=== PATIENT | female | born 1985 | race Caucasian/White ===

== ENCOUNTER 2017-09-24 13:51 | Emergency (ER) | payer OTHER, MEDICAID ==
[~2017-09-24] VITALS: Ht 160 cm; Wt 54.4 kg
[2017-09-24 16:55] VITALS: BP 118/76
== END 2017-09-24 17:04 | disposition home or self-care (01) ==
LOC: ER 13:51
DX: H66.91 Otitis media, unspecified, right ear (principal); Z88.6 Allergy status to analgesic agent; Z88.8 Allergy status to other drugs, medicaments and biological substances

== ENCOUNTER 2018-08-30 09:03 | Inpatient (IN) | payer OTHER ==
[~2018-08-30] VITALS: Ht 160 cm; Wt 58.5 kg
[2018-08-30 10:22] LABS: Urine WBC None Seen /hpf (0 - 5)
[2018-08-30 10:26] LABS: Basophils # (auto) 0 uL; Basophils % (auto) 0.5 % (0.0-2.0); Eosinophils # (auto) 0 uL; Eosinophils % (auto) 0.5 % (0.0-7.0); Hematocrit 41.8 % (36.0-46.0); Hemoglobin 14.4 g/dL (12.2-16.2); Lymphocytes # (auto) 3.1 uL; Lymphocytes % (auto) 52.2 % (10.0-50.0); Mean Corpuscular Hemoglobin 31.5 pg (28.0-32.0); Mean Corpuscular Hgb Conc. 34.4 g/dL (32.0-36.0); Mean Corpuscular Volume 91.7 fL (80.0-100.0); Monocytes # (auto) 0.7 uL; Neutrophils # (auto) 2.1 uL; Neutrophils % (auto) 35.8 % (37.0-80.0); Nucleated Red Blood Cells % 0.2 %; Platelet Count (auto) 141 10^3/uL (140-450); Red Blood Cells 4.56 10^6/uL (4.0-5.20); Red Cell Distribution Width 12.6 % (11.8-14.3); White Blood Cell 5.9 10^3/uL (4.4-10.8)
[2018-08-30 10:42] LABS: Albumin 3.7 g/dL (3.4-5.0); Calcium 8.9 mg/dL (8.5-10.1); Potassium 3.9 mmol/L (3.5-5.1)
[2018-08-30 10:46] LABS: BUN/Creatinine Ratio 4.8; Bilirubin, Total 0.5 mg/dL (0.2-1.0); Total Protein 7.5 g/dL (6.4-8.2)
[2018-08-30 11:05] LABS: Urine Bacteria FEW /hpf (None Seen); Urine Blood Negative /uL (Negative); Urine Specific Gravity 1.005 (1.001-1.035)
[2018-08-30] MEDS ORDERED: SODIUM CHLORIDE 0.9% 1,000 ML IV ONE ×2 (11:57)
[2018-08-30] MEDS ORDERED: PIPERACILLIN-TAZOB 3.375GM 100 ML IV ONE (12:00)
[2018-08-30] MEDS ORDERED: metroNIDAZOLE 500MG/100ML 100 ML IV ONE (12:00)
[2018-08-30] MEDS ORDERED: metroNIDAZOLE 500MG/100ML 100 ML IV SCH (14:00)
[2018-08-30] MEDS: SODIUM CHLORIDE 0.9% 1,000 ML IV SCH (14:00)
[2018-08-30] MEDS ORDERED: LEVOFLOXACIN 500MG 100 ML IV SCH ×2 (14:00→14:18)
[2018-08-30 14:41] LABS: Alcohol, Urine < 3.0 mg/dL (0-5); Amphetamine Screen, Urine NEGATIVE (NEGATIVE); Barbiturate Scree,Urine NEGATIVE (NEGATIVE); Benzodiazephine Screen, Urine NEGATIVE (NEGATIVE); Cannabinoid Screen, Urine NEGATIVE (NEGATIVE); Cocaine Screen, Urine NEGATIVE (NEGATIVE); Opiate Scree,Urine NEGATIVE (NEGATIVE); Phencyclidine Screen, Urine NEGATIVE (NEGATIVE)
--- NOTE | 2018-08-30 16:40 | NUR ---
Med/Surg admit from ER [facility] admitted to medical/surgical unit after SBAR received. Patient oriented to primary RN, unit, room, bed, and unit policies regarding patient care and visiting hours. Patient weighed by bedscale and encouraged to call if they need something. All questions and concerns addressed, patient verbalized understanding.
[2018-08-30 16:47] VITALS: BP 106/75
[2018-08-30 17:02] VITALS: BP 106/75
[2018-08-30] MEDS: traMADol HCL 50 MG TAB PO PRN (17:31)
[2018-08-30] MEDS: LEVOFLOXACIN 500MG 100 ML IV SCH (18:11)
--- NOTE | 2018-08-30 19:00 | NUR ---
Opening Shift Note Assumed care of patient, awake and alert. No S/S of distress/SOB or pain. Instructed on POC and to call for assist PRN, will continue to monitor for changes Q1hr and PRN.
[2018-08-30] MEDS ORDERED: IBUP200C3 PO (19:54)
[2018-08-30 20:00] VITALS: BP 116/76
[2018-08-30 22:00] VITALS: BP 116/76
--- NOTE | 2018-08-30 22:00 | NUR ---
C/O Headache Paged hospitalist
[2018-08-30] MEDS: metroNIDAZOLE 500MG/100ML 100 ML IV SCH (22:09)
--- NOTE | 2018-08-30 22:25 | NUR ---
Received order for Ibuprofen 600 once.
[2018-08-30] MEDS ORDERED: IBUPROFEN 600 MG TAB PO ONE (22:30)
[2018-08-31 05:00] VITALS: BP 99/67
[2018-08-31] MEDS: traMADol HCL 50 MG TAB PO PRN ×2 (05:21→13:38)
[2018-08-31] MEDS: metroNIDAZOLE 500MG/100ML 100 ML IV SCH ×3 (06:19→21:31)
[2018-08-31 07:24] LABS: Potassium 4.1 mmol/L (3.5-5.1)
--- NOTE | 2018-08-31 07:25 | NUR ---
Opening Shift Note Assumed care of patient, awake and alert sitting up in bed. No S/S of distress/SOB or pain. Instructed on POC and to call for assist PRN, will continue to monitor for changes Q1hr and PRN.
[2018-08-31 07:26] LABS: BUN/Creatinine Ratio 7.6; Calcium 8.5 mg/dL (8.5-10.1)
[2018-08-31 07:32] LABS: INR 0.97 (0.9-1.15); Partial Thromboplastin Time 28.1 sec (23.78-33.04); Prothrombin Time 10.4 sec (9.27-12.13)
[2018-08-31 07:54] VITALS: BP 105/70
[2018-08-31] MEDS: MORPHINE SULF INJ 2 MG/ML SYRINGE 1ML IV PRN ×2 (10:54→16:08)
[2018-08-31] MEDS: SODIUM CHLORIDE 0.9% 1,000 ML IV SCH ×3 (10:57→21:49)
[2018-08-31 12:05] VITALS: BP 100/65
[2018-08-31] MEDS ORDERED: GOLYTELY 4L KIT PO ONE (13:15)
--- NOTE | 2018-08-31 14:15 | NUR ---
Headache Hospitalist paged, patient complained of having severe headache which is not relieved by tramadol 50mg. Hospitalist paged.
--- NOTE | 2018-08-31 14:27 | NUR ---
Telephone order received from Dr. Sifuentes for Ibuprofen 600mg once.
[2018-08-31] MEDS ORDERED: IBUPROFEN 600 MG TAB PO ONE (14:30)
--- NOTE | 2018-08-31 14:40 | NUR ---
Jeny Patient asleep at this time. Did not wake her for pain medication.
--- NOTE | 2018-08-31 15:00 | NUR ---
Visitor at bedside.
--- NOTE | 2018-08-31 16:00 | NUR ---
Jeny Brought oral pain medication for patient. However, she refused, wanted morphine instead. Medication wasted.
[2018-08-31 16:57] VITALS: BP 112/70
[2018-08-31] MEDS: LEVOFLOXACIN 500MG 100 ML IV SCH (18:06)
--- NOTE | 2018-08-31 19:00 | NUR ---
OPENING NOTE Received report from day shift RN. Patient is A&O X's 4 with no s/s of distress noted. Patient reports headache and nausea. She reported that she vomited once time. No nausea medication ordered. Will page hospitalist. Patient's family member is at bedside. Educated patient and family member on pain medication/antiemetic medication/POC. Educated patient that she will be NPO after midnight and that she will need to drink and finish the Golytely. Patient verbalized understanding. Bed is in lowest/locked position with side rails up X's 2. Call light is within reach of patient. Will continue to monitor and round hourly/PRN.
[2018-08-31] MEDS: ONDANSETRON HCL 4 MG/2 ML VIAL IV PRN (21:31)
[2018-08-31 21:56] VITALS: BP 105/57
[2018-09-01 05:39] VITALS: BP 104/71
[2018-09-01] MEDS: metroNIDAZOLE 500MG/100ML 100 ML IV SCH ×3 (05:40→21:31)
[2018-09-01] MEDS: SODIUM CHLORIDE 0.9% 1,000 ML IV SCH ×2 (05:41→16:00)
--- NOTE | 2018-09-01 05:59 | NUR ---
GOLYTELY Educated patient to consume the rest of golytely solution. Patient verbalized understanding. Will continue to educate patient and encourage patient to finish solution.
[2018-09-01] MEDS ORDERED: GOLYTELY 4L KIT PO ONE (06:00)
--- NOTE | 2018-09-01 07:30 | NUR ---
Opening Note Received report from night custodian RN. Patient is awake, alert and oriented x4. No signs or symptoms of distress noted at this time. Patient states a headache 10/. Will medicate per orders. Patient is on room air, denies shortness of breath at this time. Reviewed plan of care with patient, patient verbalized understanding. Patient instructed to finish drinking Golytely for procedure today. Bed in lowest and locked position, call light within reach. Will continue to monitor Q1 hour and PRN.
[2018-09-01 08:46] VITALS: BP 105/62
[2018-09-01] MEDS: traMADol HCL 50 MG TAB PO PRN ×2 (09:10→19:03)
--- NOTE | 2018-09-01 09:30 | NUR ---
Visitor at bedside
[2018-09-01] MEDS: ONDANSETRON HCL 4 MG/2 ML VIAL IV PRN (10:44)
[2018-09-01] MEDS ORDERED: FLUMAZENIL 0.1 MG/ML INJ 10ML MDV IV ONE (11:18)
[2018-09-01] MEDS ORDERED: NALOXONE HCL 0.4 MG/ML VIAL ONE (11:18)
[2018-09-01] MEDS ORDERED: SODIUM CHLORIDE LOCK 10 ML ONE (11:18)
[2018-09-01] MEDS ORDERED: diphenhdrAMINE HCL 50 MG/1 ML VL ONE (11:19)
--- NOTE | 2018-09-01 11:28 | NUR ---
Patient taken down to OR
[2018-09-01] MEDS: MIDAZOLAM HCL 5 MG/ML-1ML VIAL ONE ×3 (11:43→11:53)
[2018-09-01] MEDS: fentaNYL CITRATE 100 MCG/2 ML VL ONE ×3 (11:43→11:53)
[2018-09-01] MEDS ORDERED: SUMAtriptan SUCCINATE 25 MG TAB PO ONE (11:45)
[2018-09-01] MEDS ORDERED: SUMAtriptan SUCCINATE 25 MG TAB PO PRN (11:45)
[2018-09-01] MEDS ORDERED: fentaNYL CITRATE 100 MCG/2 ML VL ONE (11:55)
[2018-09-01] MEDS ORDERED: MIDAZOLAM HCL 5 MG/ML-1ML VIAL ONE (11:55)
--- NOTE | 2018-09-01 13:00 | NUR ---
Patient back from OR. Patient back in room. Vitals signs BP 104/69, heart rate 68, O2 95% on room air. No signs or symptoms of distress noted at this time. Family at bedside. Will continue to monitor Q1 hour and PRN.
[2018-09-01 16:47] VITALS: BP 110/71
[2018-09-01] MEDS: LEVOFLOXACIN 500MG 100 ML IV SCH (17:42)
[2018-09-01] MEDS ORDERED: HYDROCORTISONE ACET 25 MG RECTAL SUPP PR SCH (18:00)
--- NOTE | 2018-09-01 19:05 | NUR ---
OPENING NOTE Received report from day shift RN. Patient is A&O X's 4 with no s/s of distress noted. Patient c/o mild headache right now. Pain medication was given as ordered. Applied ice packs to head at this time to help with pain. Patient reported that headache is going down. Educated patient on POC and to use call light when in need of assistance. Patient verbalized understanding. Will continue to monitor and round hourly/PRN.
--- NOTE | 2018-09-01 19:26 | NUR ---
Closing Note Report given to caustic cresylate shift superintendent RN. No signs or symptoms of distress noted at this time.
[2018-09-01 22:02] VITALS: BP 107/63
[2018-09-02] MEDS: SODIUM CHLORIDE 0.9% 1,000 ML IV SCH ×2 (02:00→12:02)
[2018-09-02 05:30] VITALS: BP 111/71
[2018-09-02] MEDS: metroNIDAZOLE 500MG/100ML 100 ML IV SCH ×2 (05:35→14:00)
[2018-09-02 09:00] VITALS: BP 111/69
--- NOTE | 2018-09-02 11:50 | NUR ---
ROUNDING Dr Monet rounding on patient. Plan of care discussed with patient including follow up care and new prescriptions. Patient cleared for discharge today. Work order given.
--- NOTE | 2018-09-02 11:58 | NUR ---
PRESCRIPTIONS CALLED [facility] Verbal order read back to call prescriptions in to [facility]. Prescriptions called in as ordered.
--- NOTE | 2018-09-02 12:00 | NUR ---
Dr Licona rounded on patient. Test results discussed. Patient encouraged to follow up in 1 weeks.
[2018-09-02 13:00] VITALS: BP 122/82
[2018-09-02] MEDS: traMADol HCL 50 MG TAB PO PRN (14:27)
--- NOTE | 2018-09-02 16:49 | NUR ---
Discharge instructions given as ordered. Encourage to follow up with PMD as instructed. All questions and concerns addressed. Patient verbalized understanding. Medication reconciliation form completed and copy given to patient. IV removed with catheter intact, pressure dressing applied. Patient ambulated off unit with all personal belongings, accompanied by staff and family member. No distress noted at time of departure.
== END 2018-09-02 16:40 | disposition home or self-care (01) | DRG 394 ==
LOC: ER 09:03 → OVERFLOW 14:03 → EAST 16:42
PROVIDERS: ADMIT Internal Medicine; ATTEND Internal Medicine
PROC: 0DBE8ZX Excision of Large Intestine, Via Natural or Artificial Opening Endoscopic, Diagnostic (ICD-10-PCS; 2018-09-01)
PROC: 0DBP8ZX Excision of Rectum, Via Natural or Artificial Opening Endoscopic, Diagnostic (ICD-10-PCS; principal; 2018-09-01 11:40)
DX: K62.89 Other specified diseases of anus and rectum (principal); K62.6 Ulcer of anus and rectum; K52.9 Noninfective gastroenteritis and colitis, unspecified; G43.909 Migraine, unspecified, not intractable, without status migrainosus; K63.89 Other specified diseases of intestine; Z88.1 Allergy status to other antibiotic agents; Z88.5 Allergy status to narcotic agent
CPT/HCPCS: 36415; 74176; 80048; 80053; 80307; 81001; 83605; 84702; 85025; 85048; 85610; 85652; 85730; 86850; 86900; 86901; 87040; 87045; 87493; 87899; 96374; G0378; J1956; J2250; J2405; J2543; J3490